=== PATIENT | female | born 1950 | race Caucasian/White ===

== ENCOUNTER 2018-05-15 06:24 | Emergency (ER) | payer BC, MEDICARE ==
[2018-05-15 07:07] LABS: #Eosinphils 0.4 thou/uL (0.0-0.7); #Lymphocytes 2.5 thou/uL (1.20-3.40); #Monocytes 0.4 thou/uL (0.11-0.59); #Neutrophils 4.3 thou/uL (1.40-6.50); %Basophils 0.6 % (0.0-1.0); %Eosinophils 5.2 % (0.0-10.0); %Lymphocytes 32.3 % (21.0-51.0); %Monocytes 5.3 % (0.0-10.0); %Neutrophils 56.5 % (42.0-75.0); Hemoglobin 14.6 g/dL (12.0-16.0); Mean Corpuscular HGB CONC 32.6 g/dL (32.0-36.0); Mean Corpuscular Hemoglobin 26.1 pg (27.0-31.0); Mean Platelet Volume 6.9 fL (7.4-10.4); Platelet Count 310 thou/uL (130-400); RBC Distribution Width 12.5 % (11.5-14.5); Red Blood Cell (RBC) Count 5.58 mill/uL (4.20-5.40); White Blood Cell (WBC) Count 7.6 thou/uL (4.8-10.8)
[2018-05-15 07:27] LABS: ALT (SGPT) 18 U/L (8-55); AST (SGOT) 16 U/L (5-34); Albumin 4.5 g/dL (3.4-4.8); Alkaline Phosphatase 49 U/L (40-150); Anion Gap 14 mmol/L (10-20); BUN (Urea Nitrogen) 17 mg/dL (9.8-20.1); Bilirubin, Total 0.3 mg/dL (0.2-1.2); Calc. Creatinine Clearance 0 mL/min (70-130); Calcium 10.5 mg/dL (7.8-10.44); Carbon Dioxide 22 mmol/L (23-31); Chloride 106 mmol/L (98-107); Estimated GFR-MDRD 57; Globulin 3.1 g/dL (2.4-3.5); Glucose 165 mg/dL (80-115); Potassium 4.2 mmol/L (3.5-5.1); Protein, Total 7.6 g/dL (6.0-8.3); Sodium 138 mmol/L (136-145)
[2018-05-15 07:31] LABS: Troponin I Less than 0.010 ng/mL (< 0.028)
--- NOTE | 2018-05-15 08:40 | CT ---
CT BRAIN WITHOUT CONTRAST: Indication: Tingling in the left arm with stroke like symptoms. Comparison: 02-12-12 FINDINGS: No acute infarct, hemorrhage, or hydrocephalus is present. Septum pellucidum and third ventricle are midline. Skull and extracranial soft tissues are within normal limits. IMPRESSION: No acute intracranial abnormality. POS: [facility]
--- NOTE | 2018-05-15 08:48 | RAD ---
PA AND LATERAL CHEST: Date: 05/15/18 INDICATION: Chest pain with tachycardia. FINDINGS: Lungs are clear. Cardiomediastinal silhouette is within normal limits. No acute osseous abnormality i s evident. Mild vascular calcification of the aortic arch and cardiac silhouette size is stable to a comparison dated 05/30/11. IMPRESSION: No acute cardiopulmonary abnormality. POS: [facility]
[2018-05-15 10:29] LABS: Troponin I Less than 0.010 ng/mL (< 0.028)
== END 2018-05-15 10:52 | disposition home or self-care (01) ==
LOC: ERS 06:24
DX: R20.2 Paresthesia of skin (principal); R07.89 Other chest pain; E11.9 Type 2 diabetes mellitus without complications; I10 Essential (primary) hypertension; Z79.899 Other long term (current) drug therapy; Z79.84 Long term (current) use of oral hypoglycemic drugs
CPT/HCPCS: 70450; 71046; 80053; 84484; 85025; 93005

== ENCOUNTER 2018-09-03 08:08 | Outpatient (CLI) | payer BC, MEDICARE ==
--- NOTE | 2018-09-03 09:21 | BD ---
BONE DENSITOMETRY USING DEXA: HISTORY: Postmenopausal screening for osteoporosis. FINDINGS: Lumbar Spine: BMD (g/cm2) L1 1.132 T-Score: 1.3 Z-Score: 2.9 L2 1.218 T-Score: 1.7 Z-Score: 3.5 L3 1.075 T-Score: 0.1 Z-Score: 1.8 L4 1.018 T-Score: -0.4 Z-Score: 1.6 L1-L4 1.108 T-Score: 0.6 Z-Score: 2.4 Femoral Neck: 0.896 T-Score: 0.4 Z-Score: 2.0 Total Femur: 1.175 T-Score: 1.9 Z-Score: 3.2 Impression: Normal bone mineral density. No evidence of osteopenia/osteoporosis. POS: C
== END 2018-09-03 08:09 | disposition home or self-care (01) ==
LOC: BICMAMMO 08:08
PROVIDERS: ATTEND Family Medicine
DX: Z12.31 Encounter for screening mammogram for malignant neoplasm of breast (principal); Z13.820 Encounter for screening for osteoporosis; Z78.0 Asymptomatic menopausal state; R92.1 Mammographic calcification found on diagnostic imaging of breast
CPT/HCPCS: 77063; 77067; 77080

== ENCOUNTER 2019-03-09 16:28 | Emergency (ER) | payer BC, MEDICARE | END 2019-03-09 17:12 | disposition home or self-care (01) | LOC: ERS 16:28 | DX: L03.116 Cellulitis of left lower limb (principal); E78.5 Hyperlipidemia, unspecified; E11.9 Type 2 diabetes mellitus without complications; I10 Essential (primary) hypertension; Z79.899 Other long term (current) drug therapy; Z79.84 Long term (current) use of oral hypoglycemic drugs | CPT/HCPCS: 99283 ==

== ENCOUNTER 2020-11-23 16:20 | Outpatient (CLI) | payer BC, MEDICARE ==
[2020-11-24 04:50] LABS: SARS-CoV-2 PCR by NAA Not Detected (NotDetected)
== END 2020-11-23 16:21 | disposition home or self-care (01) ==
LOC: LABBT 16:20
PROVIDERS: ATTEND Ophthalmology Retina Specialist
DX: Z01.812 Encounter for preprocedural laboratory examination (principal); Z20.822 Contact with and (suspected) exposure to COVID-19
CPT/HCPCS: 87635; U0003; U0005

== ENCOUNTER 2020-11-25 05:49 | Day surgery (SDC) | payer BC, MEDICARE ==
[2020-11-24 10:26] VITALS: BMI 38.4
[2020-11-25] MEDS ORDERED: Phenylephrine 2.5% Ophth Soln 5 ML BOT ONE ×2 (06:18→06:19)
[2020-11-25] MEDS ORDERED: Cyclopentolate W/ Phenylephrin 40 DROP/2 ML BOT ONE (06:20)
[2020-11-25] MEDS ORDERED: PROPOFOL 20 ML ONE (06:25)
[2020-11-25] MEDS ORDERED: Fentanyl 100 MCG/2 ML VIAL ONE (06:25)
[2020-11-25] MEDS ORDERED: Midazolam HCl 2 mg/2 ml Vial ONE (06:25)
[2020-11-25] MEDS ORDERED: EPINEPHrine 0.3 MG in Ophthalmic Irrigation Solution 500 ML IRR SCH (06:30)
[2020-11-25] MEDS ORDERED: Triamcinolone 40 MG/ML VIAL ONE (07:22)
[2020-11-25] MEDS ORDERED: Bupivacaine PF 0.75% SDV 10 ML ONE (07:22)
[2020-11-25] MEDS ORDERED: CEFAZOLIN 1 GM VIAL ONE (07:22)
[2020-11-25] MEDS ORDERED: Lidocaine 1% PF 5 ML VIAL ONE (07:22)
[2020-11-25] MEDS ORDERED: Maxitrol 0.1% Opth Oint 3.5 GM TUBE ONE (07:22)
[2020-11-25] MEDS ORDERED: Lidocaine 4% PF 5 ML AMP ONE (07:22)
== END 2020-11-25 08:12 | disposition home or self-care (01) ==
LOC: SDC 05:49
PROVIDERS: ATTEND Ophthalmology Retina Specialist
PROC: 08T53ZZ Resection of Left Vitreous, Percutaneous Approach (ICD-10-PCS; principal; 2020-11-25)
DX: H43.392 Other vitreous opacities, left eye (principal); Z79.4 Long term (current) use of insulin; Z79.899 Other long term (current) drug therapy
CPT/HCPCS: 36416; 93005; 93010; J0171; J0690; J2250; J2704; J3010; J3301; J3490

== ENCOUNTER 2021-01-05 16:02 | Outpatient (CLI) | payer BC, MEDICARE | END 2021-01-05 16:03 | disposition home or self-care (01) | LOC: CTENTCT 16:02 | PROVIDERS: ATTEND Specialist | DX: J32.9 Chronic sinusitis, unspecified (principal) | CPT/HCPCS: 70486 ==

== ENCOUNTER 2021-06-07 14:40 | Outpatient (CLI) | payer BC, MEDICARE | END 2021-06-07 14:41 | disposition home or self-care (01) | LOC: BICMAMMO 14:40 | PROVIDERS: ATTEND Family Medicine | DX: Z12.31 Encounter for screening mammogram for malignant neoplasm of breast (principal); Z13.820 Encounter for screening for osteoporosis; Z78.0 Asymptomatic menopausal state | CPT/HCPCS: 77063; 77067; 77080 ==

== ENCOUNTER 2021-12-06 13:29 | Outpatient (CLI) | payer BC, MEDICARE | END 2021-12-06 13:30 | disposition home or self-care (01) | LOC: MRI 13:29 | PROVIDERS: ATTEND Family Medicine | DX: R51.9 Headache, unspecified (principal) | CPT/HCPCS: 70553; 82565 ==

== ENCOUNTER 2022-02-23 07:42 | Outpatient (CLI) | payer BC, MEDICARE ==
[2022-02-23] MEDS ORDERED: Iopamidol 370 76% 100 ML VIAL ONE (15:56)
== END 2022-02-23 07:43 | disposition home or self-care (01) ==
LOC: CT 07:42
PROVIDERS: ATTEND Internal Medicine Cardiovascular Disease
DX: R09.89 Other specified symptoms and signs involving the circulatory and respiratory systems (principal); R91.1 Solitary pulmonary nodule; K76.0 Fatty (change of) liver, not elsewhere classified; K57.30 Diverticulosis of large intestine without perforation or abscess without bleeding; K55.1 Chronic vascular disorders of intestine
CPT/HCPCS: 74175; 82565; Q9967

== ENCOUNTER 2022-08-23 09:37 | Outpatient (CLI) | payer BC, MEDICARE | END 2022-08-23 09:38 | disposition home or self-care (01) | LOC: SCSMRI 09:37 | PROVIDERS: ATTEND Nurse Practitioner Family | DX: M50.122 Cervical disc disorder at C5-C6 level with radiculopathy (principal) | CPT/HCPCS: 72141; 72146 ==

== ENCOUNTER 2024-06-17 12:36 | Outpatient (CLI) | payer MEDICARE, BC | END 2024-06-17 12:37 | disposition home or self-care (01) | LOC: BICULT 12:36 | PROVIDERS: ATTEND Internal Medicine Nephrology | DX: R94.4 Abnormal results of kidney function studies (principal) | CPT/HCPCS: 76770 ==

== ENCOUNTER 2024-06-27 15:52 | Emergency (ER) | payer MEDICARE, BC ==
[2024-06-27] MEDS ORDERED: Acetaminophen 500 MG TAB ONE (16:28)
[2024-06-27 16:49] LABS: #Basophils 0.03 10x3/uL (0.0-0.2); %Basophils 0.4 % (0.0-1.0); %Eosinophils 4.4 % (0.0-10.0); %Monocytes 7.5 % (0.0-10.0); %Neutrophils 61.3 % (42.0-75.0); Hematocrit 34.4 % (36.0-47.0); Hemoglobin 11.3 g/dL (12.0-16.0); Mean Corpuscular HGB CONC 32.8 g/dL (32.0-36.0); Mean Corpuscular Volume 82.1 fL (78.0-98.0); Mean Platelet Volume 9.3 fL (7.4-10.4); Platelet Count 217 10x3/uL (130-400); RBC Distribution Width 13.5 % (11.5-14.5); Red Blood Cell (RBC) Count 4.19 mill/uL (4.20-5.40)
[2024-06-27 17:08] LABS: ALT (SGPT) 16 U/L (8-55); AST (SGOT) 21 U/L (5-34); Albumin 3.6 g/dL (3.4-4.8); Alkaline Phosphatase 52 U/L (40-110); Anion Gap 13 mmol/L (10-20); BUN (Urea Nitrogen) 26 mg/dL (9.8-20.1); Bilirubin, Total 0.4 mg/dL (0.2-1.2); Calc. Creatinine Clearance 0 mL/min (70-130); Calcium 9.7 mg/dL (7.8-10.44); Carbon Dioxide 24 mmol/L (23-31); Chloride 106 mmol/L (98-107); Estimated GFR 24; Globulin 2.8 g/dL (2.4-3.5); Glucose 176 mg/dL (83-110); Potassium 3.5 mmol/L (3.5-5.1); Protein, Total 6.4 g/dL (5.8-8.1); Sodium 139 mmol/L (136-145)
[2024-06-27] MEDS ORDERED: cloNIDine 0.1 MG TAB ONE (17:08)
[2024-06-27 17:10] LABS: Troponin I Less than 0.010 ng/mL (< 0.028)
[2024-06-27] MEDS ORDERED: Cyclobenzaprine 10 MG TAB ONE (18:11)
== END 2024-06-27 18:25 | disposition home or self-care (01) ==
LOC: ERS 15:52
DX: S46.812A Strain of other muscles, fascia and tendons at shoulder and upper arm level, left arm, initial encounter (principal); I10 Essential (primary) hypertension; R06.02 Shortness of breath; X58.XXXA Exposure to other specified factors, initial encounter
CPT/HCPCS: 36415; 71045; 80053; 83880; 84484; 85025; 93005